=== PATIENT | male | born 1980 | race Caucasian/White ===

== ENCOUNTER 2017-10-23 20:47 | Emergency (ER) | payer BC, SELFPAY ==
[2017-10-23 20:48] VITALS: BP 173/97; PULSE 89; RESP 20; TEMP 36.7; O2SAT 100; BMI 31.6
--- NOTE | 2017-10-23 21:31 | ED.RN ---
WENT TO PLACE IV IN AND PT REFUSED STATED,I AM FINE RIGHT HERE.ATTEMPT TO EXPLAIN THE PURPOSE AND PT DECLINED.
== END 2017-10-23 21:55 | disposition left against medical advice (07) ==
LOC: ED 22:55
PROVIDERS: Emergency Provider Emergency Medicine; Family Provider Internal Medicine; PCP Family Medicine
DX: T78.40XA Allergy, unspecified, initial encounter (principal)

== ENCOUNTER → 2021-01-07 09:27 | Outpatient (CLI) | payer BC, SELFPAY ==
--- NOTE | 2021-01-07 09:32 | US_ITS ---
STUDY: SUPERFICIAL ULTRASOUND - SUBMANDIBULAR GLANDS. REASON FOR EXAM: Male, 41 years old. MASS L SUBMANDIBULAR AREA -- SUSPECT SALIVARY GLAND TECHNIQUE: A superficial ultrasound was performed with real-time and static pedraza-scale imaging. COMPARISON: None. FINDINGS: The right submandibular gland measure 3.7 cm x 2.7 cm by 1.1 cm. It is of heterogeneous echotexture. The left submandibular gland measures 3.5 cm x 2.9 cm by 1.5 cm. It is of heterogeneous echotexture. There is a 4 mm x 6 mm x 2 mm calculus in the left submandibular duct. Incidental note is made of small benign-appearing lymph nodes in both submandibular US/Head/Neck Soft Tissue IMPRESSION: Heterogeneous appearance of both submandibular glands. 4 mm x 6 mm x 2 mm calculus in the left submandibular duct. Electronically Signed: Joe Rao MD at 10:28 EDT , Service support ,
== END ==
PROVIDERS: PCP Family Medicine; Referring Provider Family Medicine; Visit Provider Family Medicine
DX: K11.20 Sialoadenitis, unspecified (principal); R22.1 Localized swelling, mass and lump, neck
CPT/HCPCS: 76536

== ENCOUNTER → 2025-03-06 | Outpatient (CLI) | payer BC, SELFPAY ==
[2025-03-06 12:24] LABS: Hematocrit 42.3 % (40-54); Hemoglobin 14.3 g/dL (13.0-16.5); Immature Granulocytes Count 0.010 X10^3/uL (0.0-0.0); Mean Corp Hgb Conc 33.8 g/dL (32-36); Mean Corpuscular Volume 85.5 fL (80-94); Mean Platelet Vol. 9.6 fl (6.2-12.0); NRBC Flagged by Analyzer 0 % (0-5); Platelet Count 294 K/mm3 (150-450); RBC Distribution Width CV 12.9 % (11.6-14.6); RBC Distribution Width SD 39.8 fl (35.1-43.9); Red Blood Count 4.95 M/mm3 (4.6-6.2); White Blood Count 5.1 K/mm3 (4.4-11.0)
[2025-03-06 12:59] LABS: AST(SGOT) 19 U/L (<=37); Alanine Aminotransfer ALT/SGPT 19 U/L (<=46); Albumin, Serum 4.4 g/dL (3.5-5.0); Alkaline Phosphatase 50 U/L (40-129); Anion Gap 12 (5-15); BUN 16 mg/dL (4-19); BUN/Creat Ratio 15.0 RATIO (10-20); Calcium,Total 9.4 mg/dL (7.6-11.0); Carbon Dioxide 20.4 mmol/L (21.0-32.0); Chloride 108 mmol/L (98-108); Cholesterol 238 mg/dL (<=200); Globulin 2.6 g/dL (2.2-4.2); Glucose 101 mg/dL (70-99); Low Density Lipoprotein Calc. 175 mg/dL; Potassium 4.0 mmol/L (3.3-5.1); Triglycerides 107 mg/dL; Very Low Density Lipoprotein 21 mg/dL (5-40); cholesterol:hdl ratio screen 5.65
[2025-03-12 09:08] LABS: Testosterone, % Free 4.18 % (1.50-4.20); Testosterone, Free 18.68 ng/dL (5.00-21.00)
== END | disposition home or self-care (01) ==
LOC: BFHLAB 09:18
PROVIDERS: PCP Family Medicine; Visit Provider Family Medicine
DX: Z00.00 Encounter for general adult medical examination without abnormal findings (principal); R53.83 Other fatigue
CPT/HCPCS: 36415; 80053; 80061; 84402; 84403; 85025

== ENCOUNTER → 2025-07-02 | Outpatient (CLI) | payer BC, SELFPAY ==
--- NOTE | 2025-07-02 06:20 | CT_ITS ---
PROCEDURE: SOFT TISSUE NECK WITHOUT CONTR 07/02/2025 REASON FOR EXAM: ACUTE RECURRENT SIALOADENITIS TECHNIQUE: SOFT TISSUE NECK WITHOUT CONTR RADIATION DOSE SUMMARY: CTDlvol: 18 mGy DLP: 600 mGycm FINDINGS: Noncontrast neck CT is a limited exam. Thoracic inlet unremarkable. Normal thyroid gland. Normal nasopharynx. Normal parotid glands. No parotid gland or duct calcification. No pathologic oral cavity and calcification. However, there is a calculus within the hilum of the left submandibular gland and this measures 6 mm. There is no adjacent abscess. There is no adenopathy. CT/Soft Tissue Neck without Contr IMPRESSION: 6 mm calculus within the hilum of the left submandibular gland without addition al calcification seen Reading [facility]
--- NOTE | 2025-07-02 06:20 | CT_ITS ---
PROCEDURE: SOFT TISSUE NECK WITHOUT CONTR 07/02/2025 REASON FOR EXAM: ACUTE RECURRENT SIALOADENITIS TECHNIQUE: SOFT TISSUE NECK WITHOUT CONTR RADIATION DOSE SUMMARY: CTDlvol: 18 mGy DLP: 600 mGycm FINDINGS: Noncontrast neck CT is a limited exam. Thoracic inlet unremarkable. Normal thyroid gland. Normal nasopharynx. Normal parotid glands. No parotid gland or duct calcification. No pathologic oral cavity and calcification. However, there is a calculus within the hilum of the left submandibular gland and this measures 6 mm. There is no adjacent abscess. There is no adenopathy. CT/Soft Tissue Neck without Contr IMPRESSION: 6 mm calculus within the hilum of the left submandibular gland without addition al calcification seen Reading [facility]
--- OUTSIDE RECORDS SUMMARY | 2025-07-02 06:22 | XMS RPT_ITS | CCD ---
Author Organization [facility] Inform ion Partnership [facility] Care Team Providers Care Help Desk Consultant Name Role Phone Lyric Ferrell DO Primary Care Provider Dr. Mseeret Wayne DO Primary Care Provider [phone] Dr. Pal Ceballos DO Attending Provider [phone] Meseret Wayne Primary Care Unavailable Pal Ceballos Attending Unavailable Satnam, Camacho Attending Unavailable Meseret Wayne Primary Care Unavailable Meseret Wayne Primary Care Unavailable Pal Ceballos Attending Unavailable Medications Completed/Discontinued Medications Medication Drug Class(es) Dates Sig (Normalized) Sig (Original) 24 hr dilTIAZem hydrochloride 120 mg extended release oral capsule (1 source) Calcium Channel Maria G take 1 tablet by mouth once daily diltiazem CR 120 mg ORAL 24 hr capsule Take one(1) tablet daily. 0 Active Comment on above: Take one(1) tablet d aily. famotidine 20 mg oral tablet (1 source) Histamine-2 Receptor Antagonist take 1 tablet by mouth twice daily famotidine (PEPCID) 20 mg tablet Take 20 mg by mouth twice daily. 0 Active Comment on above: Take 20 mg by mouth twice daily. loratadine 10 mg oral tablet (1 source) take 1 tablet by mouth once daily loratadine (CLARITIN) 10 mg ORAL tablet Take one(1) tablet daily. 0 Active Comment on above: Take one(1) tablet d aily. MULTIVITAMIN ORAL (1 source) MULTIVITAMIN ORA L Take by mouth. 0 Active Comment on above: Take by mouth. naproxen 500 mg oral tablet (1 source) Nonsteroidal Anti-inflammatory Drug Start: 05-16-2015 take 1 tablet by mouth twice daily as needed for pain naproxen (NAPROSYN) 500 mg tablet Indications: Left-sided low back pain with left-sided sciatica Take 1 tablet by mouth twice daily as needed (pain/inflammation , take with food.). 60 tablet 0 05/16/2015 Active Comment on above: Take 1 tablet by jodi twice daily as needed (pain/inflammation, take with food.). raNITIdine 150 mg oral capsule (1 source) Histamine-2 Receptor Antagonist take 1 tablet by mouth once daily Ranitidine HCl (ZANTAC) 150 mg ORAL capsule Take one(1) tablet daily. 0 Active Comment on above: Take one(1) tablet d aily. Problems Problem Classification Problem Date Documented Da te Episodic/Chronic Other circulatory disease (1 source) Elevated blood-pressure reading without diagnosis of hypertension; Translations: [Elevated blood-pressure reading, without diagnosis of hypertension] Onset: 12-06-2005 12-06-2005 Episodic Results Test Name Value Interpretation Reference Range Facility Testosterone, Total / Freeon 03-12-2025 TESTOSTER,FREE 18.68 ng/dL Normal 5.00-21.00 [facility] Comment on above: Order Comment: N Performed By: #### L 500.4100, L500.4050, L100.0100, L3100.5310 #### [facility] [address] [place], [place], [id number] TESTOSTER,TOTAL 447 ng/dL Normal 264-916 [facility] Comment on above: Order Comment: N Result Comment: Adul t male reference interval is based on a population of healthy nonobese males (BMI <30) between 19 and 39 years old. Abbey et.al. JCEM 2017,102;8365-0020. PMID: [id number]. Performed By: #### L 500.4100, L500.4050, L100.0100, L3100.5310 #### [facility] [address] [place], [place], [id number] (738) TESTOSTERONE,%F 4.18 Normal 1.50-4.20 [facility] Comment on above: Order Comment: N Result Comment: Perf ormed at: - [facility] [id number] [employer] Server: Cuco Ashford PhD, Phone: [phone] Performed at: - [facility] [id number] [employer] Server: Devon Parker MD, Phone: [phone] Performed By: #### L 500.4100, L500.4050, L100.0100, L3100.5310 #### [facility] [address] [place], [address] Absolute lymphocyte countOrd ered By: Pal Ceballos on 03-06-2025 Lymphocytes Auto (Unsp spec) [#/Vol] 2.38 10*3/uL 0.83-4.51 [facility] Absolute neutrophil countOrd ered By: Pal Ceballos on 03-06-2025 Neutrophils (Bld) [#/Vol] 2.3 10*3/uL 2.0-7.7 [facility] Anion gap in Serum or Plasma Ordered By: Pal Ceballos on 03-06-2025 Anion gap [Moles/Vol] 12 mmol/L 5-15 [facility] Automated lymphocyte count a s percentage of total leukocytesOrdered By: Pal Ceballos on 03-06-2025 Lymphocytes/100 WBC Auto (Unsp spec) 46.4 % High 19-41 [facility] BUN/creatinine ratioOrdered By: Pal Ceballos on 03-06-2025 Urea nitrogen/Creatinine [Mass ratio] 15.0 mg/mg 10-20 [facility] Basophil percentageOrdered B y: Pal Ceballos on 03-06-2025 Basophils/100 WBC (Bld) 0.4 % 0-[address] [facility] Bilirubin, totalOrdered By: Pal Ceballos on 03-06-2025 Bilirubin [Mass/Vol] 0.46 mg/dL 0.00-1.30 [facility] CBC W/Diff, Automatedon Absolute Lymph 2.38 X10 3/uL Normal 0.83-4.51 [facility] Comment on above: Performed By: #### L 500.4100, L500.4050, L100.0100, L3100.5310 #### [facility] [address] [place], [address] Absolute Neut 2.3 X10 3/uL Normal 2.0-7.7 [facility] Comment on above: Performed By: #### L 500.4100, L500.4050, L100.0100, L3100.5310 #### [facility] [address] [place], [address] Basophils/100 WBC (Bld) 0.4 % Normal 0-[address] [facility] Comment on above: Performed By: #### L 500.4100, L500.4050, L100.0100, L3100.5310 #### [facility] [address] [place], [address] Eosinophils/100 WBC (Bld) 2.9 % Normal 0-5 [facility] Comment on above: Performed By: #### L 500.4100, L500.4050, L100.0100, L3100.5310 #### [facility] [address] [place], [address] Erythrocyte distribution width (RBC) [Ratio] 12.9 % Normal 11.6-14.6 [facility] Comment on above: Performed By: #### L 500.4100, L500.4050, L100.0100, L3100.5310 #### [facility] [address] [place], [address] Hematocrit (Bld) [Volume fraction] 42.3 % Normal 40-54 [facility] Comment on above: Performed By: #### L 500.4100, L500.4050, L100.0100, L3100.5310 #### [facility] [address] [place], [address] Hemoglobin (Bld) [Mass/Vol] 14.3 g/dL Normal 13.0-16.5 [facility] Comment on above: Performed By: #### L 500.4100, L500.4050, L100.0100, L3100.5310 #### [facility] [address] [place], [address] IG% 0.200 Normal 0.0-0.9 [facility] Comment on above: Result Comment: IG% - Immature Granulocytes (promyelocytes, myelocytes and metamyelocytes) > 1% indicates that a LEFT SHIFT is Present. Performed By: #### L 500.4100, L500.4050, L100.0100, L3100.5310 #### [facility] [address] [place], [address] Lymphocytes/100 WBC (Bld) 46.4 % High 19-41 [facility] Comment on above: Performed By: #### L 500.4100, L500.4050, L100.0100, L3100.5310 #### [facility] [address] [place], [address] MCH (RBC) [Entitic mass] 28.9 pg Normal 27.0-32.0 [facility] Comment on above: Performed By: #### L 500.4100, L500.4050, L100.0100, L3100.5310 #### [facility] [address] [place], [address] MCHC (RBC) [Mass/Vol] 33.8 g/dL Normal 32-36 [facility] Comment on above: Performed By: #### L 500.4100, L500.4050, L100.0100, L3100.5310 #### [facility] [address] [place], [address] MCV (RBC) [Entitic vol] 85.5 fL Normal 80-[address] [facility] Comment on above: Performed By: #### L 500.4100, L500.4050, L100.0100, L3100.5310 #### [facility] [address] [place], [address] Monocytes/100 WBC (Bld) 6.2 % Normal 0-[address] [facility] Comment on above: Performed By: #### L 500.4100, L500.4050, L100.0100, L3100.5310 #### [facility] [address] [place], [address] Neutrophils/100 WBC (Bld) 43.9 % Low 47-70 [facility] Comment on above: Performed By: #### L 500.4100, L500.4050, L100.0100, L3100.5310 #### [facility] [address] [place], [address] Nucleated RBC (Bld) [#/Vol] 0 10*3/uL Normal 0-5 [facility] Comment on above: Performed By: #### L 500.4100, L500.4050, L100.0100, L3100.5310 #### [facility] [address] [place], [address] Platelet mean volume (Bld) [Entitic vol] 9.6 fL Normal 6.2-12.0 [facility] Comment on above: Performed By: #### L 500.4100, L500.4050, L100.0100, L3100.5310 #### [facility] [address] [place], [address] Platelets (Bld) [#/Vol] 294 10*3/uL Normal 150-450 [facility] Comment on above: Performed By: #### L 500.4100, L500.4050, L100.0100, L3100.5310 #### [facility] [address] [place], [address] RBC (Bld) [#/Vol] 4.95 10*6/uL Normal 4.6-6.2 [facility] Comment on above: Performed By: #### L 500.4100, L500.4050, L100.0100, L3100.5310 #### [facility] [address] [place], [address] RDW SD 39.8 fl Normal 35.1-43.9 [facility] Comment on above: Performed By: #### L 500.4100, L500.4050, L100.0100, L3100.5310 #### [facility] [address] [place], [address] WBC (Bld) [#/Vol] 5.1 10*3/uL Normal 4.4-11.0 [facility] Comment on above: Performed By: #### L 500.4100, L500.4050, L100.0100, L3100.5310 #### [facility] [address] [place], [address] Calculated very low density lipoprotein (VLDL) cholesterol measurementOrdered By: Pal Ceballos on 03-06-2025 Calculated very low density lipoprotein (VLDL) cholesterol measurement 21 mg/dL 5-40 [facility] Carbon dioxide, total [Moles /volume] in Central venous bloodOrdered By: Pal Ceballos on 03-06-2025 CO2 [Moles/Vol] 20.4 mmol/L Low 21.0-32.0 [facility] Chloride assayOrdered By: Kevin Ceballos on 03-06-2025 Chloride [Moles/Vol] 108 mmol/L 98-108 [facility] Comprehensive Metabolic Prof ilon 03-06-2025 Albumin [Mass/Vol] 4.4 g/dL Normal 3.5-5.0 [facility] Comment on above: Performed By: #### L 500.4100, L500.4050, L100.0100, L3100.5310 #### [facility] [address] [place], [address] Albumin/Globulin [Mass ratio] 1.7 {ratio} Normal 0.9-2.4 [facility] Comment on above: Performed By: #### L 500.4100, L500.4050, L100.0100, L3100.5310 #### [facility] [address] [place], [address] ALK PHOS 50 U/L Normal 40-129 [facility] Comment on above: Performed By: #### L 500.4100, L500.4050, L100.0100, L3100.5310 #### [facility] [address] [place], [address] ALT [Catalytic activity/Vol] 19 U/L Normal <=46 [facility] Comment on above: Performed By: #### L 500.4100, L500.4050, L100.0100, L3100.5310 #### [facility] [address] [place], [address] AST [Catalytic activity/Vol] 19 U/L Normal <=37 [facility] Comment on above: Performed By: #### L 500.4100, L500.4050, L100.0100, L3100.5310 #### [facility] [address] [place], [address] Bilirubin [Mass/Vol] 0.46 mg/dL Normal 0.00-1.30 [facility] Comment on above: Performed By: #### L 500.4100, L500.4050, L100.0100, L3100.5310 #### [facility] [address] [place], [address] BUN/CRE 15.0 RATIO Normal 10-20 [facility] Comment on above: Performed By: #### L 500.4100, L500.4050, L100.0100, L3100.5310 #### [facility] [address] [place], [address] Calcium [Mass/Vol] 9.4 mg/dL Normal 7.6-11.0 [facility] Comment on above: Performed By: #### L 500.4100, L500.4050, L100.0100, L3100.5310 #### [facility] [address] [place], [address] Chloride [Moles/Vol] 108 mmol/L Normal 98-108 [facility] Comment on above: Performed By: #### L 500.4100, L500.4050, L100.0100, L3100.5310 #### [facility] [address] [place], [address] CO2 [Moles/Vol] 20.4 mmol/L Low 21.0-32.0 [facility] Comment on above: Performed By: #### L 500.4100, L500.4050, L100.0100, L3100.5310 #### [facility] [address] [place], [address] Creatinine [Mass/Vol] 1.03 mg/dL Normal 0.70-1.20 [facility] Comment on above: Performed By: #### L 500.4100, L500.4050, L100.0100, L3100.5310 #### [facility] [address] [place], [address] GAP 12 Normal 5-15 [facility] Comment on above: Performed By: #### L 500.4100, L500.4050, L100.0100, L3100.5310 #### [facility] [address] [place], [address] GFR/1.73 sq M.predicted among non-blacks MDRD (S/P/Bld) [Vol rate/Area] 91 mL/min/{1.73_m2} Normal >60 [facility] Comment on above: Result Comment: mL/m in/1.73m2 CKD-EPI Creatinine Equation (2020) Performed By: #### L 500.4100, L500.4050, L100.0100, L3100.5310 #### [facility] [address] [place], [address] Globulin (S) [Mass/Vol] 2.6 g/dL Normal 2.2-4.2 [facility] Comment on above: Performed By: #### L 500.4100, L500.4050, L100.0100, L3100.5310 #### [facility] [address] [place], [address] Glucose [Mass/Vol] 101 mg/dL High 70-99 [facility] Comment on above: Performed By: #### L 500.4100, L500.4050, L100.0100, L3100.5310 #### [facility] [address] [place], [address] Potassium [Moles/Vol] 4.0 mmol/L Normal 3.3-5.1 [facility] Comment on above: Performed By: #### L 500.4100, L500.4050, L100.0100, L3100.5310 #### [facility] [address] [place], [address] Sodium [Moles/Vol] 140 mmol/L Normal 133-145 [facility] Comment on above: Performed By: #### L 500.4100, L500.4050, L100.0100, L3100.5310 #### [facility] [address] [place], [address] T PROT 7.0 g/dL Normal 5.9-8.4 [facility] Comment on above: Performed By: #### L 500.4100, L500.4050, L100.0100, L3100.5310 #### [facility] [address] [place], [address] Urea nitrogen [Mass/Vol] 16 mg/dL Normal 4-19 [facility] Comment on above: Performed By: #### L 500.4100, L500.4050, L100.0100, L3100.5310 #### [facility] [place], [address] Eosinophil percentageOrdered By: Pal Ceballos on 03-06-2025 Eosinophils/100 WBC (Bld) 2.9 % 0-5 [facility] Erythrocyte distribution wid th ratioOrdered By: Pal Ceballos on 03-06-2025 Erythrocyte distribution width (RBC) [Ratio] 12.9 % 11.6-14.6 [facility] Erythrocyte distribution wid th standard deviationOrdered By: Pal Ceballos on 03-06-2025 Erythrocyte distribution width (RBC) [Ratio] 39.8 fl 35.1-43.9 [facility] Free testosterone percentage Ordered By: Pal Ceballos on 03-06-2025 Testosterone Free/Testosterone.total [Mass fraction] 4.18 % 1.50-4.20 [facility] Comment on above: Performed at: [address] [id number] Director: Cuco Ashford PhD, Phone: [phone] at: [facility] [id number] Director: Devon Parker MD, Phone: [phone] Glomerular filtration rate ( GFR) estimation/1.73 sq m using serum, plasma, or whole bOrdered By: Pal Ceballos on 03-06-2025 GFR/1.73 sq M.predicted among non-blacks MDRD (S/P/Bld) [Vol rate/Area] 91 mL/min/{1.73_m2} >60 [facility] Comment on above: mL/min/1.73m2 CKD-EP I Creatinine Equation (2020) Hematocrit Auto (Bld) [Volum e fraction]Ordered By: Pal Ceballos on 03-06-2025 Hematocrit (Bld) [Volume fraction] 42.3 % 40-54 [facility] Hemoglobin measurementOrdere d By: Pal Ceballos on 03-06-2025 Hemoglobin (Bld) [Mass/Vol] 14.3 g/dL 13.0-16.5 [facility] Immature granulocytes/100 WB C Auto (Bld)Ordered By: Pal Ceballos on 03-06-2025 Immature granulocytes/100 WBC (Bld) 0.200 % 0.0-0.9 [facility] Comment on above: IG% - Immature Granu locytes (promyelocytes, myelocytes and metamyelocytes) > 1% indicates that a LEFT SHIFT is Present. LDL calc ser/plasOrdered By: Pal Ceballos on 03-06-2025 Cholesterol in LDL [Mass/Vol] 175 mg/dL [facility] Comment on above: Knhprpqdtf=320-899 m g/dL & Higher Wlzv=658 mg/dL or greater Laboratory - Chemistry and C hemistry - challengeOrdered By: Pal Ceballos on 03-06-2025 AST [Catalytic activity/Vol] 19 U/L <38 [facility] Lipid Profileon 03-06-2025 CHOL:HDL 5.65 Normal [facility] Comment on above: Performed By: #### L 500.4100, L500.4050, L100.0100, L3100.5310 #### [facility] [address] [place], [address] Cholesterol [Mass/Vol] 238 mg/dL High <=200 [facility] Comment on above: Result Comment: Chol esterol level, Desirable <200 mg/dL Borderline high cholesterol 200-239 mg/dL High cholesterol >=240 mg/dL Recommendations of the NCEP Adult Treatment Panel for the following risk-cutoff thresholds for the [place] Citizen population. Performed By: #### L 500.4100, L500.4050, L100.0100, L3100.5310 #### [facility] [address] [place], [address] Cholesterol in HDL [Mass/Vol] 42 mg/dL Normal [facility] Comment on above: Result Comment: Rachelle onal Cholesterol Education Program (NCEP) guidelines: <40 mg/dL: Low HDL-cholesterol (major risk factor for CHD) >= 60 mg/dL: High HDL-cholesterol (negative risk factor for CHD) HDL-cholesterol is affected by a number of factors, e.g. smoking, exercise, hormones, sex and age. Performed By: #### L 500.4100, L500.4050, L100.0100, L3100.5310 #### [facility] [address] [place], [address] Cholesterol in LDL [Mass/Vol] 175 mg/dL Normal [facility] Comment on above: Result Comment: Bord flknmk=935-114 mg/dL Higher Oylk=989 mg/dL or greater Performed By: #### L 500.4100, L500.4050, L100.0100, L3100.5310 #### [facility] [address] [place], [address] Cholesterol in VLDL [Mass/Vol] 21 mg/dL Normal 5-40 [facility] Comment on above: Performed By: #### L 500.4100, L500.4050, L100.0100, L3100.5310 #### [facility] [address] [place], [address] Triglyceride [Mass/Vol] 107 mg/dL Normal [facility] Comment on above: Result Comment: The drugs N-Acetylcysteine and Metamizole may falsely depress this assay. Normal range: <150 mg/dL Borderline High: 150-199 mg/dL High: 200-499 mg/dL Very High: >500 mg/dL Performed By: #### L 500.4100, L500.4050, L100.0100, L3100.5310 #### [facility] [address] [place], [address] MCV (mean corpuscular volume ) determinationOrdered By: Pal Ceballos on 03-06-2025 MCV (RBC) [Entitic vol] 85.5 fL 80-[address] [facility] Mean corpuscular hemoglobin (MCH) determinationOrdered By: Pal Ceballos on 03-06-2025 MCH (RBC) [Entitic mass] 28.9 pg 27.0-32.0 [facility] Mean corpuscular hemoglobin concentration (MCHC) determinationOrdered By: Pal Ceballos on 03-06-2025 MCHC (RBC) [Mass/Vol] 33.8 g/dL 32-36 [facility] Mean platelet volume determi nationOrdered By: Pal Ceballos on 03-06-2025 Platelet mean volume (Bld) [Entitic vol] 9.6 fL 6.2-12.0 [facility] Monocyte percentageOrdered B y: Pal Ceballos on 03-06-2025 Monocytes/100 WBC (Bld) 6.2 % 0-[address] [facility] Neutrophil percentageOrdered By: Pal Ceballos on 03-06-2025 Neutrophils/100 WBC (Bld) 43.9 % Low 47-70 [facility] Nucleated red blood cell per centageOrdered By: Pal Ceballos on 03-06-2025 Nucleated RBC/100 WBC (Bld) [Ratio] 0 % 0-5 [facility] Platelet countOrdered By: Kevin Ceballos on 03-06-2025 Platelets (Bld) [#/Vol] 294 10*3/uL 150-450 [facility] Potassium measurement (mass/ volume)Ordered By: Pal Ceballos on 03-06-2025 Potassium (Unsp spec) [Mass/Vol] 4.0 mmol/L 3.3-5.1 [facility] RBC Auto (Bld) [#/Vol]Ordere d By: Pal Ceballos on 03-06-2025 RBC (Bld) [#/Vol] 4.95 10*6/uL 4.6-6.2 [facility] Screening total cholesterol/ high density lipoprotein (HDL) cholesterol ratioOrdered By: Pal Ceballos on 03-06-2025 Cholesterol.total/Cholest arlene in HDL [Mass ratio] 5.65 {ratio} [facility] Serum creatinine measurement (mass/volume)Ordered By: Pal Ceballos on 03-06-2025 Creatinine [Mass/Vol] 1.03 mg/dL 0.70-1.20 [facility] Serum globulin measurementOr dered By: Pal Ceballos on 03-06-2025 Globulin (S) [Mass/Vol] 2.6 g/dL 2.2-4.[address] [facility] Serum glucose measurement (m ass/volume)Ordered By: Pal Ceballos on 03-06-2025 Glucose [Mass/Vol] 101 mg/dL High 70-99 [facility] Serum or plasma alanine castellanos otransferase (ALT) measurementOrdered By: Pal Ceballos on 03-06-2025 ALT [Catalytic activity/Vol] 19 U/L <47 [facility] Serum or plasma albumin vishnu urement (mass/volume)Ordered By: Pal Ceballos on 03-06-2025 Albumin [Mass/Vol] 4.4 g/dL 3.5-5.0 [facility] Serum or plasma albumin/glob ulin mass ratioOrdered By: Pal Ceballos on 03-06-2025 Albumin/Globulin [Mass ratio] 1.7 {ratio} 0.9-2.4 [facility] Serum or plasma alkaline dorene sphatase measurementOrdered By: Pal Ceballos on 03-06-2025 ALP [Catalytic activity/Vol] 50 U/L 40-129 [facility] Serum or plasma calcium vishnu urement (mass/volume)Ordered By: Pal Ceballos on 03-06-2025 Calcium [Mass/Vol] 9.4 mg/dL 7.6-11.0 [facility] Serum or plasma cholesterol in HDL measurement (mass/volume)Ordered By: Pal Ceballos on 03-06-2025 Cholesterol in HDL [Mass/Vol] 42 mg/dL >40 [facility] Comment on above: National Cholesterol Education Program (NCEP) guidelines:<40 mg/dL: Low HDL-cholesterol (major risk factor for CHD)>= 60 mg/dL: High HDL-cholesterol (negative risk factor for CHD)HDL-cholesterol is affected by a number of factors, e.g. smoking, exercise, hormones, sex and age. Serum or plasma cholesterol measurement (mass/volume)Ordered By: Pal Ceballos on 03-06-2025 Cholesterol [Mass/Vol] 238 mg/dL High <201 [facility] Comment on above: Cholesterol level, D esirable <200 mg/dLBorderline high cholesterol 200-239 mg/dLHigh cholesterol >=240 mg/dLRecommendations of the NCEP Adult Treatment Panel for the following risk-cutoff thresholds for the [place] Citizen population. Serum or plasma free testost erone measurement (mass/volume)Ordered By: Pal Ceballos on 03-06-2025 Testosterone Free [Mass/Vol] 18.68 ng/dL 5.00-21.00 [facility] Serum or plasma urea nitroge n measurement (mass/volume)Ordered By: Pal Ceballos on 03-06-2025 Urea nitrogen [Mass/Vol] 16 mg/dL 4-19 [facility] Sodium levelOrdered By: Pal Ceballos on 03-06-2025 Sodium [Moles/Vol] 140 mmol/L 133-145 [facility] Testosterone, totalOrdered B y: Pal Ceballos on 03-06-2025 Testosterone [Mass/Vol] 447 ng/dL 264-[address] [facility] Comment on above: Adult male reference interval is based on a population ofhealthy nonobese males (BMI <30) between 19 and 39 yearsold. Abbye et.al. JCEM 2017,102;4529-0058. PMID:[id number]. Total proteinOrdered By: Aleta Ceballos on 03-06-2025 Protein [Mass/Vol] 7.0 g/dL 5.9-8.4 [facility] Triglycerides measurementOrd ered By: Pal Ceballos on 03-06-2025 Triglyceride [Mass/Vol] 107 mg/dL <[address] [facility] Comment on above: The drugs N-Acetylcy steine and Metamizole may falsely depress this assay. Normal range: <150 mg/dLBorderline High: 150-199 mg/dLHigh: 200-499 mg/dLVery High: >500 mg/dL White blood cell (WBC) count Ordered By: Pal Ceballos on 03-06-2025 WBC (Bld) [#/Vol] 5.1 10*3/uL 4.4-11.0 [facility] Encounters Encounter Date Encounter Type Care Provider Facility Start: 07-09-2025 ambulatory Camacho Friend Facility :[facility] Start: 03-13-2025 Encounter for genera l adult medical examination without abnormal findings Pal Ceballos [facility] Start: 03-06-2025 End: 03-06-[address] Meseret Wayne DO Work Phone: -Laboratory Marilee Pool [facility] Start: 03-06-2025 End: 03-06-[address] Pal Ceballos DO -Laboratory Marilee Pool [facility] Start: 03-06-2025 End: 03-06-2025 ambulatory Meseret Wayne Facility:[facility] Start: 09-16-2024 Encounter for genera l adult medical examination without abnormal findings Pal Lin [facility] Start: 09-16-2024 [facility] Start: 05-28-2022 End: 05-28-2022 ambulatory LRYIC FERRELL Facility:[facility] Start: 05-28-2022 End: 05-28-2022 ambulatory [facility] Nurse [facility] Work Phone: [facility] Procedures Date Procedure Procedure Detail Performing Clinician Start: 05-28-2022 INFLUENZA VACCINE QUADRIVALENT 6 MO - 64 YRS IM Christian Oropeza MD Work Phone: Plan of Treatment Date Care Activity Detail Author Start: 10-18-2021 COVID-19 VACCINE (4 - Booster for Moderna series) COVID-19 VACCINE (4 - Booster for Moderna series) [facility] Start: 2014 LIPID SCREEN LIPID SCREEN [facility] Start: 1998 Urine microalbumin profile DTAP,TDAP ,TD (1 - Tdap) [facility] Start: 1997 [facility]IT[facility] Start: 1997 HIV SCREENING HIV SCREENING [facility] Start: 1991 Adult depression [facility] DEPRESSION SCREENING [facility] Start: 1979 HEPATITIS B (1 of 3 - 3-dose series) HEPATITIS B (1 of 3 - 3-dose series) [facility] Immunizations Immunization Date Immunization Notes Care Provider Matt durán 05-28-2022 influenza, injectabl e, quadrivalent, contains preservative Immunization [facility] Work Phone: [facility] 05-19-2017 influenza, injectabl e, quadrivalent, contains preservative Immunization [facility] Work Phone: [facility] Work Phone: 06-10-2016 influenza, injectabl e, quadrivalent, contains preservative Immunization Tima Work Phone: [facility] Work Phone: 06-06-2015 influenza, injectabl e, quadrivalent, contains preservative Immunization Tima Work Phone: [facility] 06-12-2014 influenza, seasonal, injectable Immunization [facility] Work Phone: [facility] Work Phone: 06-08-2013 influenza virus vaccine, unspecified formulation Immunization [facility] Work Phone: [facility] Work Phone: 05-26-2012 influenza virus vaccine, unspecified formulation Immunization Tima Work Phone: [facility] 06-04-2011 influenza virus vaccine, unspecified formulation Immunization Tima Work Phone: [facility] Work Phone: 06-19-2010 influenza virus vaccine, unspecified formulation Immunization Tima Work Phone: [facility] 08-17-2009 novel [id number], all formulations Immunization [facility] Work Phone: [facility] Work Phone: 05-30-2009 influenza virus vaccine, unspecified formulation Immunization [facility] Work Phone: [facility] 07-09-2008 influenza virus vaccine, unspecified formulation Immunization [facility] Work Phone: [facility] Work Phone: 07-14-2007 influenza virus vaccine, unspecified formulation Immunization Tima Work Phone: [facility] Work Phone: Payers Date Payer Category Payer Self-pay 2006 Unknown NIDIA INIGUEZ BS [facility] PPO [id number] 2006-Present [phone] [address] [place] [address] PPO 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) [facility] Start: 1980 Sex Assigned At Not on file [facility] Tobacco smoking stat [facility] Unknown if ever smoked [facility] Work Phone: Start: 1980 Sex Assigned At Male [facility] Evaluation note Note Date & Type Note Facility Evaluation note No assessment information availa ble [facility] Work Phone: Reason for referral (narrative) Note Date & Type Note Facility Reason for referral (narrative) No reason for referral information available [facility] Work Phone: Summary Purpose Family History No Family History Records FoundNo Family History Records Found Advance Directives No Advanced Directives Records FoundNo Advanced Directives Records Found Additional Source Comments Source Comments (unrecognize d section and content) In the event this informatio n is protected by the Federal Confidentiality of Alcohol and Drug Abuse Patient Records regulations: The Federal rules restrict any use of the information to criminally investigate or prosecute any alcohol or drug abuse patient.[facility] Care Teams (unrecognized sec tion and content) Help Desk Consultant Relationship Specialty Start Date End Date Lyric Ferrell DO PCP - General Internal Medicine 10/06/10 Team Status: Active Member Role/Relationship Status Dates Dr. Lyric Ferrell DO Family Provider Active Dr. Meseret Wayne DO Primary Care Provider Active Team Status: Inactive Member Role/Relationship Status Dates Dr. Meseret Wayne DO Primary Care Provider Active Start: March 06, 2025 End: March 06, 2025 Dr. Pal Ceballos , Attending Provider Active Start: March 06, 2025 End: March 06, 2025 (unrecognized sect ion and content) No Status Records FoundNo Status Records Found INFORMATION SOURCE (unrecogn ized section and content) DATE CREATED AUTHOR 06/06/2022 [facility] DATE CREATED AUTHOR AUTHOR'S ORGANIZ ATION 06/25/2025 [facility] Goals (unrecognized section and content) Goals may be documented in a n alternate section FOR RECORDS PERTAINING TO PATIENTS WHO ARE OR HAVE BEEN ENROLLED IN A CHEMICAL DEPENDENCY/SUBSTANCEABUSE PROGRAM, SOME INFORMATION MAY BE OMITTED. This clinical summary was aggregated from multiple sources. Caution should be exercised in using it in the provision of clinical care. This summary normalizes information from multiple sources, and as a consequence, information in this document may materially change the coding, format and clinical context of patient data. In addition, data may be omitted in some cases. CLINICAL DECISIONS SHOULD BE BASED ON THE PRIMARY CLINICAL RECORDS. [facility]. provides no warranty or guarantee of the accuracy or completeness of information in this document.
--- OUTSIDE RECORDS SUMMARY | 2025-07-02 06:22 | XMS RPT_ITS | CCD ---
Author Organization [facility] Inform ion Partnership [facility] Care Team Providers Care Permaculture Contractor Name Role Phone Lyric Ferrell DO Primary Care Provider Dr. Meseret Wayne DO Primary Care Provider [phone] Dr. Pal Ceballos DO Attending Provider [phone] Meseret Wayne Primary Care Unavailable Pal Ceballos [...] Freeon 03-12-2025 TESTOSTER,FREE 18.68 ng/dL Normal 5.00-21.00 [facility] Comment on above: Order Comment: N Performed By: #### L 500.4100, L500.4050, L100.0100, L3100.5310 #### [facility] [address] [place], [place], [id number] TESTOSTER,TOTAL 447 ng/dL Normal 264-916 [facility] Comment on above: Order Comment: N Result Comment: Adul t male reference interval is based on a population of healthy nonobese males (BMI <30) between 19 and 39 years old. Abbey et.al. JCEM 2017,102;2979-7838. PMID: [id number]. Performed By: #### L 500.4100, L500.4050, L100.0100, L3100.5310 #### [facility] [address] [place], [place], [id number] [phone] TESTOSTERONE,%F 4.18 Normal 1.50-4.20 [facility] Comment on above: Order Comment: N Result Comment: Perf ormed at: - [facility] [id number] Keypuncher: Cuco Ashford PhD, Phone: [phone] Performed at: - [facility] [id number] Keypuncher: Devon Parker MD, Phone: [phone] Performed By: #### L 500.4100, L500.4050, L100.0100, L3100.5310 #### [facility] [address] [place], [address] Absolute lymphocyte countOrd ered By: Pal Ceballos on 03-06-2025 Lymphocytes Auto (Unsp spec) [#/Vol] 2.38 10*3/uL 0.83-4.51 [facility] Absolute neutrophil countOrd ered By: Pal Ceballos on 03-06-2025 Neutrophils (Bld) [#/Vol] 2.3 10*3/uL 2.0-7.7 [facility] Anion gap in Serum or Plasma Ordered By: Pal Ceballos on 03-06-2025 Anion gap [Moles/Vol] 12 mmol/L 5-15 [facility] Automated lymphocyte count a s percentage of total leukocytesOrdered By: Pal Ceballos on 03-06-2025 Lymphocytes/100 WBC Auto (Unsp spec) 46.4 % High 19-41 [facility] BUN/creatinine ratioOrdered By: Pal Ceballos on 03-06-2025 Urea nitrogen/Creatinine [Mass ratio] 15.0 mg/mg 10-20 [facility] Basophil percentageOrdered B y: Pal Ceballos on 03-06-2025 Basophils/100 WBC (Bld) 0.4 % 0-1 [facility] Bilirubin, totalOrdered By: Pal Ceballos on 03-06-2025 Bilirubin [Mass/Vol] 0.46 mg/dL 0.00-1.30 [facility] CBC W/Diff, Automatedon Absolute Lymph 2.38 X10 3/uL Normal 0.83-4.51 [facility] Comment on above: Performed By: #### L 500.4100, L500.4050, L100.0100, L3100.5310 #### [facility] [address] [place], [address] Absolute Neut 2.3 X10 3/uL Normal 2.0-7.7 [facility] Comment on above: Performed By: #### L 500.4100, L500.4050, L100.0100, L3100.5310 #### [facility] [address] [place], [address] Basophils/100 WBC (Bld) 0.4 % Normal 0-1 [facility] Comment on above: Performed By: #### L 500.4100, L500.4050, L100.0100, L3100.5310 #### [facility] [address] [place], [address] Eosinophils/100 WBC (Bld) 2.9 % Normal 0-5 [facility] Comment on above: Performed By: #### L 500.4100, L500.4050, L100.0100, L3100.5310 #### [facility] [address] [place], [address] Erythrocyte distribution width (RBC) [Ratio] 12.9 % Normal 11.6-14.6 [facility] Comment on above: Performed By: #### L 500.4100, L500.4050, L100.0100, L3100.5310 #### [facility] [address] [place], [address] Hematocrit (Bld) [Volume fraction] 42.3 % Normal 40-54 [facility] Comment on above: Performed By: #### L 500.4100, L500.4050, L100.0100, L3100.5310 #### [facility] [address] [place], [address] Hemoglobin (Bld) [Mass/Vol] 14.3 g/dL Normal 13.0-16.5 [facility] Comment on above: Performed By: #### L 500.4100, L500.4050, L100.0100, L3100.5310 #### [facility] [address] [place], [address] IG% 0.200 Normal 0.0-0.9 [facility] Comment on above: Result Comment: IG% - Immature Granulocytes (promyelocytes, myelocytes and metamyelocytes) > 1% indicates that a LEFT SHIFT is Present. Performed By: #### L 500.4100, L500.4050, L100.0100, L3100.5310 #### [facility] [address] [place], [address] Lymphocytes/100 WBC (Bld) 46.4 % High 19-41 [facility] Comment on above: Performed By: #### L 500.4100, L500.4050, L100.0100, L3100.5310 #### [facility] [address] [place], [address] MCH (RBC) [Entitic mass] 28.9 pg Normal 27.0-32.0 [facility] Comment on above: Performed By: #### L 500.4100, L500.4050, L100.0100, L3100.5310 #### [facility] [address] [place], [address] MCHC (RBC) [Mass/Vol] 33.8 g/dL Normal 32-36 [facility] Comment on above: Performed By: #### L 500.4100, L500.4050, L100.0100, L3100.5310 #### [facility] [address] [place], [address] MCV (RBC) [Entitic vol] 85.5 fL Normal 80-94 [facility] Comment on above: Performed By: #### L 500.4100, L500.4050, L100.0100, L3100.5310 #### [facility] [address] [place], [address] Monocytes/100 WBC (Bld) 6.2 % Normal 0-10 [facility] Comment on above: Performed By: #### L 500.4100, L500.4050, L100.0100, L3100.5310 #### [facility] [address] [place], [address] Neutrophils/100 WBC (Bld) 43.9 % Low 47-70 [facility] Comment on above: Performed By: #### L 500.4100, L500.4050, L100.0100, L3100.5310 #### [facility] [address] [place], [address] Nucleated RBC (Bld) [#/Vol] 0 10*3/uL Normal 0-5 [facility] Comment on above: Performed By: #### L 500.4100, L500.4050, L100.0100, L3100.5310 #### [facility] [address] [place], [address] Platelet mean volume (Bld) [Entitic vol] 9.6 fL Normal 6.2-12.0 [facility] Comment on above: Performed By: #### L 500.4100, L500.4050, L100.0100, L3100.5310 #### [facility] [address] [place], [address] Platelets (Bld) [#/Vol] 294 10*3/uL Normal 150-450 [facility] Comment on above: Performed By: #### L 500.4100, L500.4050, L100.0100, L3100.5310 #### [facility] [address] [place], [address] RBC (Bld) [#/Vol] 4.95 10*6/uL Normal 4.6-6.2 [facility] Comment on above: Performed By: #### L 500.4100, L500.4050, L100.0100, L3100.5310 #### [facility] [address] [place], [address] RDW SD 39.8 fl Normal 35.1-43.9 [facility] Comment on above: Performed By: #### L 500.4100, L500.4050, L100.0100, L3100.5310 #### [facility] [address] [place], [address] WBC (Bld) [#/Vol] 5.1 10*3/uL Normal 4.4-11.0 [facility] Comment on above: Performed By: #### L 500.4100, L500.4050, L100.0100, L3100.5310 #### [facility] [address] [place], [address] Calculated very low density lipoprotein (VLDL) cholesterol measurementOrdered By: Pal Ceballos on 03-06-2025 Calculated very low density lipoprotein (VLDL) cholesterol measurement 21 mg/dL 5-40 [facility] Carbon dioxide, total [Moles /volume] in Central venous bloodOrdered By: Pal Ceballos on 03-06-2025 CO2 [Moles/Vol] 20.4 mmol/L Low 21.0-32.0 [facility] Chloride assayOrdered By: Kevin Ceballos on 03-06-2025 Chloride [Moles/Vol] 108 mmol/L 98-108 [facility] Comprehensive Metabolic Prof ilon 03-06-2025 Albumin [Mass/Vol] 4.4 g/dL Normal 3.5-5.0 [facility] Comment on above: Performed By: #### L 500.4100, L500.4050, L100.0100, L3100.5310 #### [facility] [address] [place], [address] Albumin/Globulin [Mass ratio] 1.7 {ratio} Normal 0.9-2.4 [facility] Comment on above: Performed By: #### L 500.4100, L500.4050, L100.0100, L3100.5310 #### [facility] [address] [place], [address] ALK PHOS 50 U/L Normal 40-129 [facility] Comment on above: Performed By: #### L 500.4100, L500.4050, L100.0100, L3100.5310 #### [facility] [address] [place], [address] ALT [Catalytic activity/Vol] 19 U/L Normal <=46 [facility] Comment on above: Performed By: #### L 500.4100, L500.4050, L100.0100, L3100.5310 #### [facility] [address] [place], [address] AST [Catalytic activity/Vol] 19 U/L Normal <=37 [facility] Comment on above: Performed By: #### L 500.4100, L500.4050, L100.0100, L3100.5310 #### [facility] [address] [place], [address] Bilirubin [Mass/Vol] 0.46 mg/dL Normal 0.00-1.30 [facility] Comment on above: Performed By: #### L 500.4100, L500.4050, L100.0100, L3100.5310 #### [facility] [address] [place], [address] BUN/CRE 15.0 RATIO Normal 10-20 [facility] Comment on above: Performed By: #### L 500.4100, L500.4050, L100.0100, L3100.5310 #### [facility] [address] [place], [address] Calcium [Mass/Vol] 9.4 mg/dL Normal 7.6-11.0 [facility] Comment on above: Performed By: #### L 500.4100, L500.4050, L100.0100, L3100.5310 #### [facility] [address] [place], [address] Chloride [Moles/Vol] 108 mmol/L Normal 98-108 [facility] Comment on above: Performed By: #### L 500.4100, L500.4050, L100.0100, L3100.5310 #### [facility] [address] [place], [address] CO2 [Moles/Vol] 20.4 mmol/L Low 21.0-32.0 [facility] Comment on above: Performed By: #### L 500.4100, L500.4050, L100.0100, L3100.5310 #### [facility] [address] [place], [address] Creatinine [Mass/Vol] 1.03 mg/dL Normal 0.70-1.20 [facility] Comment on above: Performed By: #### L 500.4100, L500.4050, L100.0100, L3100.5310 #### [facility] [address] [place], [address] GAP 12 Normal 5-15 [facility] Comment on above: Performed By: #### L 500.4100, L500.4050, L100.0100, L3100.5310 #### [facility] [address] [place], [address] GFR/1.73 sq M.predicted among non-blacks MDRD (S/P/Bld) [Vol rate/Area] 91 mL/min/{1.73_m2} Normal >60 [facility] Comment on above: Result Comment: mL/m in/1.73m2 CKD-EPI Creatinine Equation (2020) Performed By: #### L 500.4100, L500.4050, L100.0100, L3100.5310 #### [facility] [address] [place], [address] Globulin (S) [Mass/Vol] 2.6 g/dL Normal 2.2-4.2 [facility] Comment on above: Performed By: #### L 500.4100, L500.4050, L100.0100, L3100.5310 #### [facility] [address] [place], [address] Glucose [Mass/Vol] 101 mg/dL High 70-99 [facility] Comment on above: Performed By: #### L 500.4100, L500.4050, L100.0100, L3100.5310 #### [facility] [address] [place], [address] Potassium [Moles/Vol] 4.0 mmol/L Normal 3.3-5.1 [facility] Comment on above: Performed By: #### L 500.4100, L500.4050, L100.0100, L3100.5310 #### [facility] [address] [place], [address] Sodium [Moles/Vol] 140 mmol/L Normal 133-145 [facility] Comment on above: Performed By: #### L 500.4100, L500.4050, L100.0100, L3100.5310 #### [facility] [address] [place], [address] T PROT 7.0 g/dL Normal 5.9-8.4 [facility] Comment on above: Performed By: #### L 500.4100, L500.4050, L100.0100, L3100.5310 #### [facility] [address] [place], [address] Urea nitrogen [Mass/Vol] 16 mg/dL Normal 4-19 [facility] Comment on above: Performed By: #### L 500.4100, L500.4050, L100.0100, L3100.5310 #### [facility] [place], [address] Eosinophil percentageOrdered By: Pal Ceballos on 03-06-2025 Eosinophils/100 WBC (Bld) 2.9 % 0-5 [facility] Erythrocyte distribution wid th ratioOrdered By: Pal Ceballos on 03-06-2025 Erythrocyte distribution width (RBC) [Ratio] 12.9 % 11.6-14.6 [facility] Erythrocyte distribution wid th standard deviationOrdered By: Pal Ceballos on 03-06-2025 Erythrocyte distribution width (RBC) [Ratio] 39.8 fl 35.1-43.9 [facility] Free testosterone percentage Ordered By: Pal Ceballos on 03-06-2025 Testosterone Free/Testosterone.total [Mass fraction] 4.18 % 1.50-4.20 [facility] Comment on above: Performed at: [address] [id number] Director: Ccuo Ashford PhD, Phone: [phone] at: [facility] [id number] Director: Devon Parker MD, Phone: [phone] Glomerular filtration rate ( GFR) estimation/1.73 sq m using serum, plasma, or whole bOrdered By: Pal Ceballos on 03-06-2025 GFR/1.73 sq M.predicted among non-blacks MDRD (S/P/Bld) [Vol rate/Area] 91 mL/min/{1.73_m2} >60 [facility] Comment on above: mL/min/1.73m2 CKD-EP I Creatinine Equation (2020) Hematocrit Auto (Bld) [Volum e fraction]Ordered By: Pal Ceballos on 03-06-2025 Hematocrit (Bld) [Volume fraction] 42.3 % 40-54 [facility] Hemoglobin measurementOrdere d By: Pal Ceballos on 03-06-2025 Hemoglobin (Bld) [Mass/Vol] 14.3 g/dL 13.0-16.5 [facility] Immature granulocytes/100 WB C Auto (Bld)Ordered By: Pal Ceballos on 03-06-2025 Immature granulocytes/100 WBC (Bld) 0.200 % 0.0-0.9 [facility] Comment on above: IG% - Immature Granu locytes (promyelocytes, myelocytes and metamyelocytes) > 1% indicates that a LEFT SHIFT is Present. LDL calc ser/plasOrdered By: Pal Ceballos on 03-06-2025 Cholesterol in LDL [Mass/Vol] 175 mg/dL [facility] Comment on above: Vxgvoeuhmu=557-090 m g/dL & Higher Vigv=019 mg/dL or greater Laboratory - Chemistry and C hemistry - challengeOrdered By: Pal Ceballos on 03-06-2025 AST [Catalytic activity/Vol] 19 U/L <38 [facility] Lipid Profileon 03-06-2025 CHOL:HDL 5.65 Normal [facility] Comment on above: Performed By: #### L 500.4100, L500.4050, L100.0100, L3100.5310 #### [facility] [address] [place], [address] Cholesterol [Mass/Vol] 238 mg/dL High <=200 [facility] Comment on above: Result Comment: Chol esterol level, Desirable <200 mg/dL Borderline high cholesterol 200-239 mg/dL High cholesterol >=240 mg/dL Recommendations of the NCEP Adult Treatment Panel for the following risk-cutoff thresholds for the [place] population. Performed By: #### L 500.4100, L500.4050, L100.0100, L3100.5310 #### [facility] [address] [place], [address] Cholesterol in HDL [Mass/Vol] 42 mg/dL Normal [facility] Comment on above: Result Comment: Rachelle onal Cholesterol Education Program (NCEP) guidelines: <40 mg/dL: Low HDL-cholesterol (major risk factor for CHD) >= 60 mg/dL: High HDL-cholesterol (negative risk factor for CHD) HDL-cholesterol is affected by a number of factors, e.g. smoking, exercise, hormones, sex and age. Performed By: #### L 500.4100, L500.4050, L100.0100, L3100.5310 #### [facility] [address] [place], [address] Cholesterol in LDL [Mass/Vol] 175 mg/dL Normal [facility] Comment on above: Result Comment: Bord iburrv=009-880 mg/dL Higher Xiec=692 mg/dL or greater Performed By: #### L 500.4100, L500.4050, L100.0100, L3100.5310 #### [facility] [address] [place], [address] Cholesterol in VLDL [Mass/Vol] 21 mg/dL Normal 5-40 [facility] Comment on above: Performed By: #### L 500.4100, L500.4050, L100.0100, L3100.5310 #### [facility] [address] [place], [address] Triglyceride [Mass/Vol] 107 mg/dL Normal [facility] Comment on above: Result Comment: The drugs N-Acetylcysteine and Metamizole may falsely depress this assay. Normal range: <150 mg/dL Borderline High: 150-199 mg/dL High: 200-499 mg/dL Very High: >500 mg/dL Performed By: #### L 500.4100, L500.4050, L100.0100, L3100.5310 #### [facility] [address] [place], [address] MCV (mean corpuscular volume ) determinationOrdered By: Pal Ceballos on 03-06-2025 MCV (RBC) [Entitic vol] 85.5 fL 80-94 [facility] Mean corpuscular hemoglobin (MCH) determinationOrdered By: Pal Ceballos on 03-06-2025 MCH (RBC) [Entitic mass] 28.9 pg 27.0-32.0 [facility] Mean corpuscular hemoglobin concentration (MCHC) determinationOrdered By: Pal Ceballos on 03-06-2025 MCHC (RBC) [Mass/Vol] 33.8 g/dL 32-36 [facility] Mean platelet volume determi nationOrdered By: Pal Ceballos on 03-06-2025 Platelet mean volume (Bld) [Entitic vol] 9.6 fL 6.2-12.0 [facility] Monocyte percentageOrdered B y: Pal Ceballos on 03-06-2025 Monocytes/100 WBC (Bld) 6.2 % 0-10 [facility] Neutrophil percentageOrdered By: Pal Ceballos on 03-06-2025 Neutrophils/100 WBC (Bld) 43.9 % Low 47-70 [facility] Nucleated red blood cell per centageOrdered By: Pal Ceballos on 03-06-2025 Nucleated RBC/100 WBC (Bld) [Ratio] 0 % 0-5 [facility] Platelet countOrdered By: Kevin Ceballos on 03-06-2025 Platelets (Bld) [#/Vol] 294 10*3/uL 150-450 [facility] Potassium measurement (mass/ volume)Ordered By: Pal Ceballos on 03-06-2025 Potassium (Unsp spec) [Mass/Vol] 4.0 mmol/L 3.3-5.1 [facility] RBC Auto (Bld) [#/Vol]Ordere d By: Pal Ceballos on 03-06-2025 RBC (Bld) [#/Vol] 4.95 10*6/uL 4.6-6.2 [facility] Screening total cholesterol/ high density lipoprotein (HDL) cholesterol ratioOrdered By: Pal Ceballos on 03-06-2025 Cholesterol.total/Cholest arlene in HDL [Mass ratio] 5.65 {ratio} [facility] Serum creatinine measurement (mass/volume)Ordered By: Pal Ceballos on 03-06-2025 Creatinine [Mass/Vol] 1.03 mg/dL 0.70-1.20 [facility] Serum globulin measurementOr dered By: Pal Ceballos on 03-06-2025 Globulin (S) [Mass/Vol] 2.6 g/dL 2.2-4.2 [facility] Serum glucose measurement (m ass/volume)Ordered By: Pal Ceblalos on 03-06-2025 Glucose [Mass/Vol] 101 mg/dL High 70-99 [facility] Serum or plasma alanine castellanos otransferase (ALT) measurementOrdered By: Pal Ceballos on 03-06-2025 ALT [Catalytic activity/Vol] 19 U/L <47 [facility] Serum or plasma albumin vishnu urement (mass/volume)Ordered By: Pal Ceballos on 03-06-2025 Albumin [Mass/Vol] 4.4 g/dL 3.5-5.0 [facility] Serum or plasma albumin/glob ulin mass ratioOrdered By: Pal Ceballos on 03-06-2025 Albumin/Globulin [Mass ratio] 1.7 {ratio} 0.9-2.4 [facility] Serum or plasma alkaline dorene sphatase measurementOrdered By: Pal Ceballos on 03-06-2025 ALP [Catalytic activity/Vol] 50 U/L 40-129 [facility] Serum or plasma calcium vishnu urement (mass/volume)Ordered By: Pal Ceballos on 03-06-2025 Calcium [Mass/Vol] 9.4 mg/dL 7.6-11.0 [facility] Serum or plasma cholesterol in HDL measurement (mass/volume)Ordered By: Pal Ceballos on 03-06-2025 Cholesterol in HDL [Mass/Vol] 42 mg/dL >40 [facility] Comment on above: National Cholesterol Education Program (NCEP) guidelines:<40 mg/dL: Low HDL-cholesterol (major risk factor for CHD)>= 60 mg/dL: High HDL-cholesterol (negative risk factor for CHD)HDL-cholesterol is affected by a number of factors, e.g. smoking, exercise, hormones, sex and age. Serum or plasma cholesterol measurement (mass/volume)Ordered By: Pal Ceballos on 03-06-2025 Cholesterol [Mass/Vol] 238 mg/dL High <201 [facility] Comment on above: Cholesterol level, D esirable <200 mg/dLBorderline high cholesterol 200-239 mg/dLHigh cholesterol >=240 mg/dLRecommendations of the NCEP Adult Treatment Panel for the following risk-cutoff thresholds for the [place] population. Serum or plasma free testost erone measurement (mass/volume)Ordered By: Pal Ceballos on 03-06-2025 Testosterone Free [Mass/Vol] 18.68 ng/dL 5.00-21.00 [facility] Serum or plasma urea nitroge n measurement (mass/volume)Ordered By: Pal Ceballos on 03-06-2025 Urea nitrogen [Mass/Vol] 16 mg/dL 4-19 [facility] Sodium levelOrdered By: Pal Ceballos on 03-06-2025 Sodium [Moles/Vol] 140 mmol/L 133-145 [facility] Testosterone, totalOrdered B y: Pal Ceballos on 03-06-2025 Testosterone [Mass/Vol] 447 ng/dL 264-916 [facility] Comment on above: Adult male reference interval is based on a population ofhealthy nonobese males (BMI <30) between 19 and 39 yearsold. Abbey et.al. JCEM 2017,102;0768-1864. PMID:[id number]. Total proteinOrdered By: Aleta Ceballos on 03-06-2025 Protein [Mass/Vol] 7.0 g/dL 5.9-8.4 [facility] Triglycerides measurementOrd ered By: Pal Ceballos on 03-06-2025 Triglyceride [Mass/Vol] 107 mg/dL <199 [facility] Comment on above: The drugs N-Acetylcy steine and Metamizole may falsely depress this assay. Normal range: <150 mg/dLBorderline High: 150-199 mg/dLHigh: 200-499 mg/dLVery High: >500 mg/dL White blood cell (WBC) count Ordered By: Pal Ceballos on 03-06-2025 WBC (Bld) [#/Vol] 5.1 10*3/uL 4.4-11.0 [facility] Encounters Encounter Date Encounter Type Care Provider Facility Start: 07-09-2025 ambulatory Camacho Friend Facility :[facility] Start: 03-13-2025 Encounter for genera l adult medical examination without abnormal findings Pal Ceballos [facility] Start: 03-06-2025 End: 03-06-[address] Meseret Wayne DO Work Phone: -Laboratory [facility] Start: 03-06-2025 End: 03-06-[address] Pal Ceballos DO -Laboratory [facility] Start: 03-06-2025 End: 03-06-2025 ambulatory Meseret Wayne Facility:[facility] Start: 09-16-2024 Encounter for genera l adult medical examination without abnormal findings Pal Lin [facility] Start: 09-16-2024 [facility] Start: 05-28-2022 End: 05-28-2022 ambulatory LYRIC FERRELL Facility:[facility] Start: 05-28-2022 End: 05-28-2022 ambulatory [facility] [place] Work Phone: [facility] [place] Procedures Date Procedure Procedure Detail Performing Clinician Start: 05-28-2022 INFLUENZA VACCINE QUADRIVALENT 6 MO - 64 YRS IM Christian Oropeza MD Work Phone: Plan of Treatment Date Care Activity Detail Author Start: 10-18-2021 COVID-19 VACCINE (4 - Booster for Moderna series) COVID-19 VACCINE (4 - Booster for Moderna series) [facility] Start: 2014 LIPID SCREEN LIPID SCREEN [facility] Start: 1998 Urine microalbumin profile DTAP,TDAP ,TD (1 - Tdap) [facility] Start: 1997 HEPATITIS C [facility] Start: 1997 HIV SCREENING HIV SCREENING [facility] Start: 1991 Adult depression [facility] assessment DEPRESSION SCREENING [facility] Start: 1979 HEPATITIS B (1 of 3 - 3-dose series) HEPATITIS B (1 of 3 - 3-dose series) [facility] Immunizations Immunization Date Immunization Notes Care Provider Matt durán 05-28-2022 influenza, injectabl e, quadrivalent, contains preservative Immunization [place] Work Phone: [facility] 05-19-2017 influenza, injectabl e, quadrivalent, contains preservative Immunization [place] Work Phone: [facility] Work Phone: 06-10-2016 influenza, injectabl e, quadrivalent, contains preservative Immunization [place] Work Phone: [facility] Work Phone: 06-06-2015 influenza, injectabl e, quadrivalent, contains preservative Immunization [place] Work Phone: [facility] 06-12-2014 influenza, seasonal, injectable Immunization [place] Work Phone: [facility] Work Phone: 06-08-2013 influenza virus vaccine, unspecified formulation Immunization [place] Work Phone: [facility] Work Phone: 05-26-2012 influenza virus vaccine, unspecified formulation Immunization [place] Work Phone: [facility] 06-04-2011 influenza virus vaccine, unspecified formulation Immunization [place] Work Phone: [facility] Work Phone: 06-19-2010 influenza virus vaccine, unspecified formulation Immunization [place] Work Phone: [facility] 08-17-2009 novel [id number], all formulations Immunization [place] Work Phone: [facility] Work Phone: 05-30-2009 influenza virus vaccine, unspecified formulation Immunization [place] Work Phone: [facility] 07-09-2008 influenza virus vaccine, unspecified formulation Immunization [place] Work Phone: [facility] Work Phone: 07-14-2007 influenza virus vaccine, unspecified formulation Immunization [place] Work Phone: [facility] Work Phone: Payers Date Payer Category Payer Self-pay 2006 Unknown NIDIA INIGUEZ BS [facility] PPO [id number] 2006-Present [phone] [address] [place] [address] PPO 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 Tobacco smoking stat [facility] Unknown if ever smoked [facility] Work Phone: Start: 1980 Sex Assigned At Male W [facility] Evaluation note Note Date & Type Note Facility Evaluation note No assessment information availa ble [facility] Work Phone: Reason for referral (narrative) Note Date & Type Note Facility Reason for referral (narrative) No reason for referral information available [facility] Work Phone: Summary Purpose Family History No [...] or prosecute any alcohol or drug abuse patient.[facility] Care Teams (unrecognized sec tion and content) 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 [facility]. provides no warranty or guarantee of the accuracy or completeness of information in this document.
== END | disposition home or self-care (01) ==
PROVIDERS: PCP Family Medicine; Referring Provider Otolaryngology; Visit Provider Otolaryngology
DX: K11.22 Acute recurrent sialoadenitis (principal)
CPT/HCPCS: 70490

== ENCOUNTER 2025-07-09 07:43 | Day surgery (SDC) | payer BC, SELFPAY ==
[2025-07-09] VITALS (8 sets, daily range): BP systolic 113–148; BP diastolic 75–92; PULSE 62–69; RESP 16; TEMP 36.2–36.8; O2SAT 93–99; BMI 32.5
--- NOTE | 2025-07-09 07:58 | PCM.HP.STD ---
[facility] - General General Date of Admission: 07/09/25 Date of Service: 07/09/25 Chief Complaint: Screening colonoscopy HPI Narrative CONOR PRESCOTT, is a 45 M who presents [today for screening colonoscopy. He is elevated colonoscopy in the past. Does not have abdominal pain, cramping, chest pain or shortness of breath. Overall he is in very good health.] [facility] Medical History Wears glasses Gastric reflux Non-smoker Hypertension Home Medications ?Medication ?Instructions ?Recorded ?Last Taken ?Type diltiazem HCl 240 mg 240 mg PO QHS 07/08/25 Unknown History capsule,extended release 24 hr escitalopram oxalate 10 mg tablet 10 mg PO QHS 07/08/25 Unknown History famotidine 10 mg tablet (Acid 10 mg PO QHS 07/08/25 Unknown History Controller) loratadine 10 mg tablet 10 mg PO QHS 07/08/25 Unknown History (Allerclear) Allergy/AdvReac Type Severity Reaction Status Date / Time No Known Allergies Allergy Verified 07/08/25 12:56 Surgical History History of wisdom tooth extraction Social History Smoking Status: Never smoker ROS Constitutional Constitutional: Denies fatigue, fever(s), poor appetite, weight gain or weight loss Gastrointestinal Gastrointestinal: Denies belching, bloating, change in bowel habits, change in stool character, chewing difficulty, coffee ground emesis, constipation, cramping, diarrhea, dyspepsia, dysphagia, early satiety, excessive flatus, fecal incontinence, heartburn, hematemesis, hematochezia, hemorrhoids, loose stools, melena, nausea, odynophagia, rectal bleeding, tenesmus, vomiting or weight changes Physical Exam Const alert, oriented x3, no apparent distress and healthy appearing General Appearance: cooperative GI normal to inspection, nondistended, normoactive bowel sounds, soft to palpation, non-tender and non-distended Percussion: normal to percussion Rectal Exam: deferred Assessment & Plan Assessment/Plan (1) Barretts esophagus: PLAN: Patient was explained alternatives, risk and benefits include not withstanding bleeding, infection, sepsis, perforation, need for brain surgery . He will have an ASA of 3.
[2025-07-09] MEDS: Lactated Ringers 1,000 ML 15 ML IV (08:08)
--- NOTE | 2025-07-09 08:27 | PCM.PRE.AN2 ---
ASA Classification* ASA Classification ASA Classification: 2 (GERD, HTN, marie esophagus) Assessment & Plan Anesthesia* Anesthesia Assessment Anesthesia Assessment: Discussed sedation and/or anesthesia options, risks, benefits, and alternatives with patient/parents/legal guardian/POA. Questions invited. The patient/parents/legal guardian/POA seems to understand and agrees to proceed with anesthesia plan. Reviewed the physical assessment, medical history, allergy history and patient home medications list prior to surgery/procedure/anesthetic and documented any changes. Performed airway and anesthesia risk assessments. Anesthesia Type Anesthesia Type: MAC History Source History Obtained from:: Patient and Chart Anesthesia Focused Assessment* Temperature: 98.3 F Pulse Rate: 62 Blood Pressure: 148/92 Respiratory Rate: 16 Pulse Ox: 99 Oxygen Delivery Method: Room Air Airway Assessment Mouth opens: >3 cm Mallampati Score: II Teeth Condition: Intact Neck Range of motion (ROM): Full ROM Labs Anesthesia Preop lab: CBC WBC, (4.4-11.0) 5.1 K/mm3 03/06/25, 09:20 RBC, (4.6-6.2) 4.95 M/mm3 03/06/25, 09:20 Hgb, (13.0-16.5) 14.3 g/dL 03/06/25, 09:20 Hct, (40-54) 42.3 % 03/06/25, 09:20 Plt Count, (150-450) 294 K/mm3 03/06/25, 09:20 CHEMISTRY Potassium, (3.3-5.1) 4.0 mmol/L 03/06/25, 09:20 Sodium, (133-145) 140 mmol/L 03/06/25, 09:20 BUN, (4-19) 16 mg/dL 03/06/25, 09:20 Creatinine, (0.70-1.20) 1.03 mg/dL 03/06/25, 09:20 Glucose, (70-99) 101 mg/dL H 03/06/25, 09:20 TSH, (0.358-3.74) 3.39 uIU/mL 10/13/15, 06:25 COAG Pre-Assessment Diagnosis/Proposed Procedure Planned Operative Procedure(s): CSCOPE Anesthesia History Anesthesia History - inside wirer: Anesthesia History - inside wirer Hx Hospitalization No 07/08/25 12:59 Any Problems With Anesthesia No 07/08/25 12:59 Cholinesterase deficiency No 07/08/25 12:59 You/Your Family Experience No 07/08/25 12:59 fever (hyperthermia) with Relationship Recent Exposure to Contagious No 07/09/25 08:04 Disease Does patient have nerve No 07/08/25 12:59 stimulator Patient instructed to have device shut off --Does patient have Pacemaker No 07/09/25 08:04 or ICD? When Was Last Pacemaker Check QUESTION #4 FULL TEXT: You/Your Family Experience fever (hyperthermia) with Anesthesia Last Oral Intake Last Oral intake: Last Oral Intake NPO since 07:00 07/09/25 08:04 Meds taken in AM with sips of No 07/09/25 08:04 water? Meds patient instructed to take am of surgery PONV PONV - inside wirer: PONV - inside wirer Female No 07/08/25 12:59 HX of Motion Sickness No 07/08/25 12:59 HX of N/V After Surgery No 07/08/25 12:59 Non-Smoker Yes 07/08/25 12:59 Duration of Surgery greater No 07/08/25 12:59 than 60 minutes Number of Risk Factors 1 07/08/25 12:59 PONV Score Low Risk 07/08/25 12:59 Height & Weight Height & Weight: Anesthesia: Height & Weight Height 5 ft 10 in 07/09/25 08:04 Weight: 103 kg 07/09/25 08:04 Body Mass Index (BMI) 32.5 07/09/25 08:04 Respiratory Assessment Respiratory Assessment - inside wirer: Respiratory Tract Infection Hx - inside wirer Hx Respiratory Tract Infection No 07/08/25 12:59 STOP Sleep Apnea STOP Sleep Apnea - inside wirer: STOP Sleep Apnea - inside wirer Hx Hypertension Yes: CONTROLLED WITH MED 07/08/25 12:59 Hx Sleep Apnea No 07/08/25 12:59 CPAP BIPAP Do you snore loudly (louder No 07/08/25 12:59 than talking or can be heard Do you often feel tired/ No 07/08/25 12:59 fatigued/ sleepy during daytime? Has anyone observed you stop No 07/08/25 12:59 breathing during sleep? STOP Results Negative 07/08/25 12:59 QUESTION #5 FULL TEXT : Do you snore loudly (louder than talking or can be heard through closed doors)? 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 Specify any problems Hx of Preganancy in last 3 N/A 07/08/25 12:59 Months Nurse Filling Out Transfusion NBUCHER 07/08/25 12:59 & Questions: Date: 07/08/25 07/08/25 12:59 Time: 12:59 07/08/25 12:59 Patient unable to answer at this time (ie. confused, unrespo /Reproduction History /Reproductive History - inside wirer: /Reproductive Hx- inside wirer Hx Now No 07/08/25 12:59 Gestational Age (in weeks): EDC: Hx Hx Para Hx Section SAB No 07/08/25 12:59 Active Medications Active Medications: Current Medications Generic Name Dose Route Start Last Admin Trade Name Freq PRN Reason Stop Dose Admin Lactated Ringer's 1,000 mls @ 15 mls/hr 07/09/25 08:00 07/09/25 08:08 IV 15 mls/hr .Q48H LIOR Administration PFSH Medical History Wears glasses Gastric reflux Non-smoker Hypertension Home Medications ?Medication ?Instructions ?Recorded ?Last Taken ?Type diltiazem HCl 240 mg 240 mg PO QHS 07/08/25 07/08/25 History capsule,extended release 24 hr escitalopram oxalate 10 mg tablet 10 mg PO QHS 07/08/25 07/08/25 History famotidine 10 mg tablet (Acid 10 mg PO QHS 07/08/25 07/08/25 History Controller) loratadine 10 mg tablet 10 mg PO QHS 07/08/25 07/06/25 History (Allerclear) Allergy/AdvReac Type Severity Reaction Status Date / Time No Known Allergies Allergy Verified 07/09/25 08:02 Surgical History History of wisdom tooth extraction Social History Smoking Status: Never smoker Review of Systems (Anesthesia) ROS Narrative System reviewed and no additional complaints, except as documented. Physical Exam Const alert, oriented x3 and average body habitus Resp normal respiratory effort, normal air movement and clear to auscultation bilaterally Cardio regular rate, regular rhythm, no murmurs and diaphoretic
--- NOTE | 2025-07-09 09:03 | POSTOP.ANE_ITS ---
Anesthesia: Postop Eval I
--- NOTE | 2025-07-09 09:03 | PCM.POST.ANE ---
Anesthesia: Postop Eval I Current Vital Signs Temperature: 97.1 F Pulse Rate: 63 Blood Pressure: 113/75 Respiratory Rate: 16 Pulse Ox: 94 Oxygen Delivery Method: Room Air Assessment Airway patent: Yes Spontaneous unlabored respirations: Yes Mental status: Awake and Calm nausea: No Vomiting: No Anesthesia Complication: No Fluid Hydration Crystalloid volume administer (ml): 300 Total IV fluid infused: 300 Progress Note Anesthesia document: Postop Eval 1 completed: Yes
--- NOTE | 2025-07-09 09:08 | OP.COLON_ITS ---
Patient Name: Mahesh Bobby
--- NOTE | 2025-07-09 09:43 | POSTOPAN2_ITS ---
Anesthesia Postop Eval I Sum
--- NOTE | 2025-07-09 09:43 | PCM.POSTANE2 ---
Anesthesia Postop Eval I Sum Postop Eval Completion status Anesthesia document: Postop Eval 1 completed: Yes Anesthesia Postop Eval I Summary Anesthesia Postop Eval I Summary: Anesthesia Postop Eval I: Assessment Summary Airway patent Yes 07/09/25 09:04 [email or web address] Spontaneous unlabored Yes 07/09/25 09:04 [email or web address] respirations Mental status Awake,Calm 07/09/25 09:04 [email or web address] nausea No 07/09/25 09:04 [email or web address] Vomiting No 07/09/25 09:04 [email or web address] Anesthesia Postop Eval I: Fluid Summary Crystalloid volume administer 300 07/09/25 09:04 [email or web address] (ml) Colloids volume administered ( ml) Blood Product volume administered (ml) Total IV fluid infused 300 07/09/25 09:04 [email or web address] Anesthesia Postop Eval I: Summary Notes Anesthesia Complication No 07/09/25 09:04 [email or web address] Anesthesia Complication Comment: Post-operative progress note Anesthesia: Postop Eval II Evaluation Mental status: Awake Pain Level: 0 nausea: No Vomiting: No Complications Anesthesia Complication: No
== END 2025-07-09 09:40 | disposition home or self-care (01) ==
LOC: EN 07:45 → AC 07:45
PROVIDERS: PCP Family Medicine; Referring Provider Family Medicine; Visit Provider Internal Medicine Gastroenterology
PROC: 0DJD8ZZ Inspection of Lower Intestinal Tract, Via Natural or Artificial Opening Endoscopic (ICD-10-PCS; CPT 45378; principal; 2025-07-09 08:40)
DX: Z12.11 Encounter for screening for malignant neoplasm of colon (principal); K22.70 Barrett's esophagus without dysplasia; K60.2 Anal fissure, unspecified; I10 Essential (primary) hypertension; K64.1 Second degree hemorrhoids; K21.9 Gastro-esophageal reflux disease without esophagitis; Z79.899 Other long term (current) drug therapy
CPT/HCPCS: 45378; J2405

== ENCOUNTER → 2025-08-26 | Outpatient (CLI) | payer BC, SELFPAY ==
--- NOTE | 2025-08-25 07:30 | SUBM_PTH ---
PATIENT: CONOR PRESCOTT LOC: [facility] U#:[id number] AGE/SX: 45/M ROOM: RE08/26/[address]: Dr. Jose Mosquera MD : 1980 BED: DIS: 08/26/2025 SPEC #: [id number] RECD: 08/26/25 14:59 STATUS: MELA REQ #: [id number] EMMANUEL: 08/25/25 07:[address]: Trever Brar DEPT: SURGICAL PATHOLOGY RECD BY: Obdulio Pacheco ENTERED: 08/27/25 10:43 SP TYPE: SUBMAN GL OTHR DR: MD Dr. Meseret Rodriguez, DO [facility] Tissues: A - Salivary gland, NOS Procedures: Surgery Specimen Level V Comments: @ Ordering doctor for SUV edited from to @ by SUNSHINE at 08/27/25 1043 @ Submitting doctor edited from to @ by SUNSHINE at 08/27/25 1043 HEADER OPERATION: Left, excision submandibular gland PRE-OP DIAGNOSIS: Acute recurrent sialoadenitis, sialoithiasis TISSUE SUBMITTED: A. Left submandibular gland MICROSCOPIC DIAGNOSIS A. Salivary gland, submandibular, left, excision: MICROSCOPIC DESCRIPTION Slides are reviewed. GROSS DESCRIPTION A. Received in formalin labeled with the patient's name and date of . Designated as left submandibular gland is a 7.3 g, 3.6 x 2.5 x 1.4 cm light to dark brown intact salivary gland, devoid of orientation. The external surfaces are somewhat shaggy and inked black. Sectioning reveals salguero to light brown, lobulated cut surfaces with central, grossly dilated ducts (0.2 cm to 0.4 cm in diameter) and a 0.7 cm yellow calculus within a cystic space containing a minimal amount of mucoid material. [employer] sections are submitted in 5 cassettes as follows: A1-A2: Cystic space containing calculusA3-A5: [employer] cross-sections [place] 08/27/2025PT:[id number]
== END | disposition home or self-care (01) ==
LOC: LABSPEC 15:46
PROVIDERS: PCP Family Medicine; Referring Provider Otolaryngology; Visit Provider Otolaryngology
DX: K11.22 Acute recurrent sialoadenitis (principal)
CPT/HCPCS: 88307